=== PATIENT | female | born 1960 | race Caucasian/White ===

== ENCOUNTER → 2017-01-14 | Outpatient (CLI) | payer BC ==
[~2017-01-14] MED LIST: LRT5 PO
--- NOTE | 2017-01-14 21:09 | ECHOCARDIOGRAM REPORT ---
*NOTICE TO RECEIVING [employer] This information is strictly Confidential and protected under [place] law. [place] law prohibits you from making any further disclosure of this information unless further disclosure is expressly permitted by the written consent of the person to whom it pertains or is authorized by law. A general authorization for the release of medical or other information is not sufficient for this purpose. Hospital accepts no responsibility if the information is made available to any other person, INCLUDING THE PATIENT. Interpretation Summary * Name: GERMAN HARRIS Study Date: 01/14/2017 01:17 PM BP: 111/71 mmHg * Patient Location: [facility] HR: 59 * : 1960 (M/d/yyyy) Gender: Female Height: 66 in * Age: 56 yrs Ethnicity: CA Weight: 140 lb * Ordering Physician: Yasir Landeros * Referring Physician: Yasir Landeros D.O. * Performed By: Yanique Benedict RDCS * * Reason For Study: PALPITATIONS * BSA: 1.7 m2 * History: PALPITATIONS * -- Conclusions -- * 1. The left ventricle is normal in size. Left ventricular systolic function is normal. EF 60-65%. No regional wall motion abnormalities noted. There is normal left ventricular wall thickness. * 2. No significant valvular abnormalities visualized. * 3. No significant diastolic dysfunction. * 4. Technically difficult study. * 5. No prior study available for comparison. Procedure Details * A complete two-dimensional transthoracic echocardiogram was performed (2D, M-mode, Doppler and color flow Doppler). Left Ventricle * The left ventricle is normal in size. * There is normal left ventricular wall thickness. * Ejection Fraction = 60-65%. * Left ventricular systolic function is normal. * No regional wall motion abnormalities noted. Right Ventricle * The right ventricle is normal in size and function. * The right ventricular systolic function is normal as assessed by tricuspid annular plane systolic excursion (TAPSE) (normal >1.5 cm). Atria * The left atrial size is normal. * Right atrial size is normal. * There is no evidence of atrial septal defect, but resolution does not allow assessment for a patent foramen ovale. Mitral Valve * The mitral valve is grossly normal. * There is no mitral valve stenosis. * Significant mitral regurgitation is absent. Tricuspid Valve * The tricuspid valve is not well visualized, but is grossly normal. * There is no tricuspid stenosis. * Significant tricuspid regurgitation is absent. Aortic Valve * The aortic valve is not well visualized. * No hemodynamically significant valvular aortic stenosis. * No aortic regurgitation is present. Pulmonic Valve * The pulmonary valve is inadequately visualized, but the Doppler data is adequate for interpretation. * There is no pulmonic valvular stenosis. * There is no significant pulmonary regurgitation. Great Vessels * The aortic root is normal size. * Aortic arch of normal dimension. Pericardium/Pleural * There is no pericardial effusion. Great Vessels * Normal inferior vena cava size and collapsability with sniff indicates a normal right atrial pressure of 3 mmHg MMode 2D Measurements and Calculations IVSd 1.1 cm IVSs 1.4 cm LVIDd 4.5 cm LVIDs 2.9 cm LVPWd 1.1 cm LVPWs 1.6 cm IVS/LVPW 1.0 FS 34.9 % EDV(Teich) 92.6 ml ESV(Teich) 33.1 ml EF(Teich) 64.3 % EDV(cubed) 91.4 ml ESV(cubed) 25.2 ml EF(cubed) 72.4 % % IVS thick 30.3 % % LVPW thick 44.5 % LV mass(C)d 176.0 grams LV mass(C)dI 102.4 grams/m\S\2 LV mass(C)s 156.1 grams LV mass(C)sI 90.8 grams/m\S\2 SV(Teich) 59.5 ml SI(Teich) 34.6 ml/m\S\2 SV(cubed) 66.1 ml SI(cubed) 38.5 ml/m\S\2 Ao root diam 3.1 cm Ao root area 7.8 cm\S\2 asc Aorta Diam 3.2 cm Doppler Measurements and Calculations MV E max alfonso 74.0 cm/sec MV A max alfonso 63.7 cm/sec MV E/A 1.2 MV dec time 0.26 sec Ao V2 max 116.4 cm/sec Ao max PG 5.4 mmHg Ao max PG (full) -0.38 mmHg LV V1 max PG 5.8 mmHg LV V1 max 120.4 cm/sec TV E max alfonso 38.0 cm/sec RAP systole 3.0 mmHg
== END | disposition home or self-care (01) ==
LOC: C.CPL 13:01
DX: R00.2 Palpitations (principal)